=== PATIENT | male | born 1960 | race African-American/Black ===

== ENCOUNTER 2019-01-01 14:56 | Emergency (ER) | payer OTHER, MEDICARE ==
[2019-01-01] MEDS ORDERED: HYDROCODONE/ACETAMINOPHEN 5-325 MG TABLET PO ONE (16:12)
[2019-01-01] MEDS ORDERED: PREDNISONE 20 MG TABLET PO ONE (16:12)
--- NOTE | 2019-01-01 16:16 | ER Document Report ---
HPI - HPI Patient complains to provider of: Right foot pain Time Seen by Provider: 01/01/19 16:00 Onset/Duration: Persistent Quality of pain: Achy Pain Level: 3 Context: Patient presents with a 2-day history of right foot pain with tenderness and mild erythema. Patient does have a history of gout and suspects the same today. Associated Symptoms: Other. denies: Fever Exacerbated by: Standing, Movement, Walking Relieved by: Denies Similar symptoms previously: Yes Recently seen / treated by doctor: No - ROS ROS below otherwise negative: Yes Systems Reviewed and Negative: Yes All other systems reviewed and negative - CONSTITUTIONAL Constitutional: DENIES: Fever - NEURO Neurology: DENIES: Weakness - CARDIOVASCULAR Cardiovascular: DENIES: Chest pain - RESPIRATORY Respiratory: DENIES: Trouble Breathing, Coughing - GASTROINTESTINAL Gastrointestinal: DENIES: Nausea - MUSCULOSKELETAL Musculoskeletal: REPORTS: Extremity pain, Swelling - DERM Skin Color: Erythema Skin Problems: None Past Medical History - General Information source: Patient - Social History Smoking Status: Never Smoker Frequency of alcohol use: None Drug Abuse: None Lives with: Family Family History: Reviewed & Not Pertinent - Past Medical History Cardiac Medical History: Reports: Hx Hypertension, Other - Aortic dissection Endocrine Medical History: Reports: Hx Diabetes Mellitus Type 2 Renal/ Medical History: Reports: Hx Renal Insufficiency Past Surgical History: Reports: Hx Vascular Surgery - Aortic dissection Vertical Provider Document - CONSTITUTIONAL Agree With Documented VS: Yes Exam Limitations: No Limitations General Appearance: WD/WN, No Apparent Distress - INFECTION CONTROL TRAVEL OUTSIDE OF THE [place] IN LAST 30 DAYS: No - HEENT HEENT: Atraumatic, Normocephalic - NECK Neck: Normal Inspection - RESPIRATORY Respiratory: No Respiratory Distress - CARDIOVASCULAR Pulses: Normal: Dorsalis pedis - MUSCULOSKELETAL/EXTREMETIES Musculoskeletal/Extremeties: MAEW, FROM, No Edema - 1+ to right foot - NEURO Level of Consciousness: Awake, Alert, Appropriate Motor/Sensory: No Motor Deficit - DERM Integumentary: Warm, Dry Notes: Mild erythema over left foot first metatarsal and over lateral aspect of right midfoot area. Course - Re-evaluation Re-evalutation: 01/01/19 16:14 Patient has a history of gout and suspects the same today. Patient denies any trauma to the foot. Patient without any fever. Discussed gout diet with patient. - Vital Signs Vital signs: Temp Pulse Resp BP Pulse Ox 98.2 F 118 H 18 153/92 H 96 01/01/19 15:02 01/01/19 15:02 01/01/19 15:02 01/01/19 15:02 01/01/19 15:02 Discharge - Discharge Clinical Impression: Right foot pain Gout attack Qualifiers: Gout site: foot Gout etiology: unspecified cause Laterality: right Qualified Code(s): M10.9 - Gout, unspecified Condition: Stable Disposition: HOME, SELF-CARE Instructions: Use of Crutches ([facility]), Gout ([facility]), Gout Diet ([facility]), Oral Narcotic Medication ([facility]), Steroid Medication Additional Instructions: Return immediately for any new or worsening symptoms Followup with your primary care provider, call tomorrow to make a followup appointment Weightbearing as tolerated Eat foods that are low in purine Prescriptions: Hydrocodone/Acetaminophen [[place] 5-325 mg Tablet] 1 tab PO Q6 PRN #15 tablet PRN Reason: Prednisone [Deltasone 20 mg Tablet] 2 tab PO DAILY 5 Days tablet Referrals: [facility] [Provider Group] - Follow up as needed
[2019-01-01 16:29] VITALS: BP 164/99
== END 2019-01-01 16:32 | disposition home or self-care (01) ==
LOC: ER 14:56
DX: M79.671 Pain in right foot (principal); M10.9 Gout, unspecified; I10 Essential (primary) hypertension; E11.9 Type 2 diabetes mellitus without complications
CPT/HCPCS: 99283; J7512

== ENCOUNTER 2019-01-26 16:05 | Emergency (ER) | payer OTHER, MEDICARE ==
--- NOTE | 2019-01-26 17:23 | ER Document Report ---
ED Medical Screen (RME) - General Chief Complaint: Abnormal Lab Results Stated Complaint: ABNORMAL LABS Time Seen by Provider: 01/26/19 17:14 Primary Care Provider: BRITNEY DAVALOS [Primary Care Provider] - Follow up as needed Mode of Arrival: Ambulatory Information source: Patient Notes: 58-year-old male presented to ED for complaint of pain to the left ankle. He states he was diagnosed with gout and took to gout medications and as soon as it ran out his pain returned. He states he went to the [facility] recently and had labs drawn and they told him there was abnormal labs and that they will go to call the emergency room what labs drawn. I cannot find where he anyone has called the emergency room. I have ordered basic labs as well as uric acid and a urine. I have greeted and performed a rapid initial assessment of this patient. A comprehensive ED assessment and evaluation of the patient, analysis of test results and completion of medical decision making process will be conducted by an additional ED providers. Dictation of this chart was performed using voice recognition software; therefore, there may be some unintended grammatical errors. TRAVEL OUTSIDE OF THE [place] IN LAST 30 DAYS: No - Related Data Allergies/Adverse Reactions: No Known Allergies Allergy (Verified 01/26/19 16:35) Past Medical History - Past Medical History Cardiac Medical History: Reports: Hx Hypertension Endocrine Medical History: Reports: Hx Diabetes Mellitus Type 2 Renal/ Medical History: Reports: Hx Renal Insufficiency. Denies: Hx Peritoneal Dialysis Past Surgical History: Reports: Hx Vascular Surgery - Aortic dissection Doctor's Discharge - Discharge Referrals: ANOOP,BRITNEY [Primary Care Provider] - Follow up as needed
[2019-01-26 17:55] LABS: APPEARANCE,URINE CLEAR; BILIRUBIN,URINE NEGATIVE (NEGATIVE); COLOR,URINE YELLOW; GLUCOSE, URINE NEGATIVE (NEGATIVE); KETONES,URINE NEGATIVE (NEGATIVE); LEUKOCYTE ESTERASE,URINE NEGATIVE (NEGATIVE); NITRITE,URINE NEGATIVE (NEGATIVE); PROTEIN,URINE NEGATIVE (NEGATIVE); URINE SPECIFIC GRAVITY 1.015; UROBILINOGEN,URINE NEGATIVE mg/dL (<2.0)
[2019-01-26 18:00] LABS: ABSOLUTE EOSINOPHILS # (AUTO) 0.1 10^3/uL (0.0-0.6); ABSOLUTE LYMPHOCYTES (AUTO) 1.7 10^3/uL (0.5-4.7); ABSOLUTE MONOCYTES (AUTO) 0.5 10^3/uL (0.1-1.4); ABSOLUTE NEUT (AUTO) 9.4 10^3/uL (1.7-8.2); BASOPHILS % (AUTO) 0.3 % (0-2); EOSINOPHILS % (AUTO) 0.5 % (0-6); HEMATOCRIT 42.6 % (37.9-51.0); HEMOGLOBIN 14.1 g/dL (13.5-17.0); LYMPHOCYTES % (AUTO) 14.2 % (13-45); MEAN CORPUSCULAR HEMOGLOBIN 30.5 pg (27.0-33.4); MEAN CORPUSCULAR VOLUME 92 fl (80-97); MONOCYTES % (AUTO) 4.6 % (3-13); PLATELET COUNT 229 10^3/uL (150-450); RED BLOOD COUNT 4.61 10^6/uL (4.35-5.55); RED CELL DISTRIBUTION WIDTH 13.9 % (11.5-14.0); SEGMENTED NEUTROPHILS % (AUTO) 80.4 % (42-78); TOTAL CELLS COUNTED % (AUTO) 100 %; WHITE BLOOD COUNT 11.6 10^3/uL (4.0-10.5)
--- NOTE | 2019-01-26 18:00 | RADIOLOGY REPORT (SQ) ---
EXAM DESCRIPTION: ANKLE LEFT COMPLETE COMPLETED DATE/TIME: 01/26/2019 5:40 pm REASON FOR STUDY: pain to left ankle since gout med out COMPARISON: None. NUMBER OF VIEWS: Three views. TECHNIQUE: AP, lateral, and oblique radiographic images acquired of the left ankle. LIMITATIONS: None. FINDINGS: MINERALIZATION: Normal. BONES: No acute fracture or dislocation. No worrisome bone lesions. JOINTS: No effusions. SOFT TISSUES: No soft tissue swelling. No foreign body. OTHER: Prominent anterior talus spur is noted. IMPRESSION: Degenerative changes. No acute findings. TECHNICAL DOCUMENTATION: JOB ID: [id number] [email or web address]- All Rights Reserved Reading location - IP/workstation name: [email or web address]
[2019-01-26 18:18] LABS: ALANINE AMINOTRANSFERASE 16 U/L (21-72); ALBUMIN 4.8 g/dL (3.5-5.0); ALKALINE PHOSPHATASE 78 U/L (38-126); ANION GAP 17 (5-19); ASPARTATE AMINO TRANSFERASE 12 U/L (17-59); BILIRUBIN,DIRECT 0.3 mg/dL (0.0-0.4); BILIRUBIN,TOTAL 0.4 mg/dL (0.2-1.3); BLOOD UREA NITROGEN 29 mg/dL (7-20); CALCIUM 9.9 mg/dL (8.4-10.2); CARBON DIOXIDE 20 mmol/L (22-30); CHLORIDE 107 mmol/L (98-107); GLUCOSE 106 mg/dL (75-110); LIPASE 70.4 U/L (23-300); SODIUM 143.8 mmol/L (137-145); TOTAL PROTEIN 8.6 g/dL (6.3-8.2); URIC ACID 10.6 mg/dL (3.5-8.5)
[2019-01-26] MEDS ORDERED: PREDNISONE 20 MG TABLET PO ONE (19:42)
[2019-01-26] MEDS ORDERED: NORMAL SALINE 1000 ML 1,000 ML IV ONE (19:43)
[2019-01-26] MEDS ORDERED: FUROSEMIDE INJ/PF 20 MG/2 ML SDV IV ONE (19:43)
[2019-01-26] MEDS ORDERED: DEXTROSE 50%-WATER 25 GM/50 ML DISP.SYRIN IV ONE (19:45)
[2019-01-26] MEDS ORDERED: INSULIN REG, HUMAN 100 UNIT/ML 3 ML VIAL (PYX) IV ONE (19:45)
--- NOTE | 2019-01-26 19:52 | ER Document Report ---
ED General - General Chief Complaint: Abnormal Lab Results Stated Complaint: ABNORMAL LABS Time Seen by Provider: 01/26/19 17:14 Primary Care Provider: BRITNEY DAVALOS [NO LOCAL MD] - Follow up as needed Mode of Arrival: Ambulatory Notes: Patient is a 58-year-old male with past medical history of chronic kidney disease, essential hypertension, gout, presents complaining of left ankle pain as [facility]. The patient states that he was treated with a medication the name of which he cannot recall for gout as soon as he stopped taking medication his left ankle again became swollen. He describes a throbbing, aching, severe, constant pain to the left ankle. Walking on the ankle worsens the pain. Nothing improves the pain. Has a long-standing history of gout. Patient states that his kidney function is usually 2.6-2.7 on the creatinine but he has never been told that he has high potassium the past he does take lisinopril. He denies any chest pain, palpitations, or syncope. TRAVEL OUTSIDE OF THE [place] IN LAST 30 DAYS: No - Related Data Allergies/Adverse Reactions: No Known Allergies Allergy (Verified 01/26/19 16:35) Past Medical History - General Information source: Patient - Social History Smoking Status: Former Smoker Frequency of alcohol use: None Drug Abuse: None Lives with: Alone Family History: Reviewed & Not Pertinent Patient has suicidal ideation: No Patient has homicidal ideation: No - Past Medical History Cardiac Medical History: Reports: Hx Hypertension Endocrine Medical History: Reports: Hx Diabetes Mellitus Type 2 Renal/ Medical History: Reports: Hx Renal Insufficiency. Denies: Hx Marry toneal Dialysis Past Surgical History: Reports: Hx Vascular Surgery - Aortic dissection Review of Systems - Review of Systems Notes: Constitutional: Negative for fever. HENT: Negative for sore throat. Eyes: Negative for visual changes. Cardiovascular: Negative for chest pain. Respiratory: Negative for shortness of breath. Gastrointestinal: Negative for abdominal pain, vomiting or diarrhea. Genitourinary: Negative for dysuria. Musculoskeletal: Positive for left ankle pain Skin: Negative for rash. Neurological: Negative for headaches, weakness or numbness. 10 point ROS negative except as marked above and in HPI. Physical Exam - Vital signs Vitals: Resp Pulse Ox 15 100 01/26/19 20:01 01/26/19 20:01 Interpretation: Normal Notes: PHYSICAL EXAMINATION: GENERAL: Well-appearing, well-nourished and in no acute distress. HEAD: Atraumatic, normocephalic. EYES: Pupils equal round and reactive to light, extraocular movements intact, sclera anicteric, conjunctiva are normal. ENT: nares patent, oropharynx clear without exudates. Moist mucous membranes. NECK: Normal range of motion, supple without lymphadenopathy LUNGS: Breath sounds clear to auscultation bilaterally and equal. No wheezes rales or rhonchi. HEART: Regular rate and rhythm without murmurs ABDOMEN: Soft, nontender, normoactive bowel sounds. No guarding, no rebound. No masses appreciated. EXTREMITIES: Normal range of motion, mild swelling of the left ankle, dorsi and plantar flexion are maintained. NEUROLOGICAL: No focal neurological deficits. Moves all extremities spontaneously and on command. PSYCH: Normal mood, normal affect. SKIN: Warm, Dry, normal turgor, no rashes or lesions noted. Course - Re-evaluation Re-evalutation: 01/26/19 19:56 Patient presents with moderate hyperkalemia with potassium of 6 with chronic kidney dysfunction. I do not have old labs for comparison although patient does report that his creatinine is usually between 2.6 and 2.7. Currently at 2.54. The patient has findings of swelling to his left ankle consistent with gout as there is no erythema, warmth, or trauma to the area. Do not suspect septic joint. Patient able to maintain full range of motion. Patient will be started on steroids for treatment as indomethacin and colchicine are not options given his chronic kidney disease. Patient will be treated with furosemide, IV fluids, insulin and glucose for his hyperkalemia. His EKG is without any concerning findings in regards to his hyperkalemia. Will recheck potassium level after the patient has had treatment to ensure that it has come into an acceptable range prior to discharge. 01/26/19 19:56 01/26/19 22:41 Patient's potassium has improved to 5.2. Pain improved after receiving prednisone in the left ankle. Patient will be discharged home on a course of prednisone, has been instructed to hold his lisinopril and have a recheck of his potassium level within the next 3 to 5 days through his primary care physician. At this time will discharge with return precautions and follow-up recommendations. Verbal discharge instructions given a the bedside and opportunity for questions given. Medication warnings reviewed. Patient is in agreement with this plan and has verbalized understanding of return precautions and the need for primary care follow-up in the next 24-72 hours. - Vital Signs Vital signs: Temp Pulse Resp BP Pulse Ox 98.3 F 23 H 143/88 H 96 01/26/19 20:54 01/26/19 22:01 01/26/19 22:01 01/26/19 22:01 - Laboratory Result Diagrams: 01/26/19 17:33 01/26/19 21:30 Laboratory results interpreted by me: 01/26/19 01/26/19 01/26/19 17:33 17:33 21:30 WBC 11.6 H Seg Neutrophils % 80.4 H Absolute Neutrophils 9.4 H Potassium 6.0 H* 5.2 H Carbon Dioxide 20 L BUN 29 H 28 H Creatinine 2.54 H 2.48 H Est GFR ( Amer) 32 L 32 L Est GFR (Non-Af Amer) 26 L 27 L Glucose 195 H Uric Acid 10.6 H AST 12 L ALT 16 L Total Protein 8.6 H - EKG Interpretation by Me Additional EKG results interpreted by me: 01/26/19 19:57 Fifths rhythm, rate 71. No ST elevations or depressions. No peak T waves. QRS 86. Discharge - Discharge Clinical Impression: Hyperkalemia Chronic kidney disease Qualifiers: Chronic kidney disease stage: unspecified stage Qualified Code(s): N18.9 - Chronic kidney disease, unspecified Left ankle pain Qualifiers: Chronicity: acute Qualified Code(s): M25.572 - Pain in left ankle and joints of left foot Gout of left ankle Qualifiers: Gout etiology: due to renal impairment Chronicity: acute Qualified Code(s): M10.372 - Gout due to renal impairment, left ankle and foot Condition: Good Disposition: HOME, SELF-CARE Additional Instructions: Please have a recheck of your potassium within the next 3 to 5 days through your primary care physician. Your potassium did improve with treatment here in the emergency department and your labs are included with your discharge paperwork. Please hold the medication called lisinopril that you are taking as this can raise your potassium level. Please also be mindful of consuming foods that are high in potassium such as bananas, tomatoes, kiwi, sweet potato, avocado, dairy products, and fruit juices. You should return to the emergency department immediately if you develop lightheadedness, pass out, have palpitations, or have any other symptoms that are concerning to you. You have been started on steroids for treatment of gout of your left ankle. In regards to the ankle, please be sure to return to the emergency department if you have significant worsening of your pain, develop a fever greater than 100.4 F, become unable to walk on the ankle, or have any other symptoms that are concerning to you. [facility]errals[facility] [NO [facility]] - Follow up in 3-5 days
[2019-01-26 22:10] LABS: ANION GAP 12 (5-19); BLOOD UREA NITROGEN 28 mg/dL (7-20); CALCIUM 9.2 mg/dL (8.4-10.2); CARBON DIOXIDE 22 mmol/L (22-30); CHLORIDE 106 mmol/L (98-107); GLUCOSE 195 mg/dL (75-110); POTASSIUM 5.2 mmol/L (3.6-5.0); SODIUM 140.3 mmol/L (137-145)
[2019-01-26 23:01] VITALS: BP 138/83
--- NOTE | 2019-01-27 22:21 | EKG REPORT ---
SEVERITY:- BORDERLINE ECG - SINUS RHYTHM PROBABLE LEFT ATRIAL ABNORMALITY BORDERLINE LEFT AXIS DEVIATION BORDERLINE T ABNORMALITIES, INFERIOR LEADS : Confirmed by: Malaika Morel MD 27-Jan-2019 22:20:16
== END 2019-01-26 23:01 | disposition home or self-care (01) ==
LOC: ER 16:05
DX: E87.5 Hyperkalemia (principal); M10.372 Gout due to renal impairment, left ankle and foot; M25.472 Effusion, left ankle; E11.22 Type 2 diabetes mellitus with diabetic chronic kidney disease; I12.9 Hypertensive chronic kidney disease with stage 1 through stage 4 chronic kidney disease, or unspecified chronic kidney disease; N18.9 Chronic kidney disease, unspecified
CPT/HCPCS: 93005; 99284; 96361; 96374; 96375; 36415; 83690; 84550; 85025; 80048; 80053; 81001; 73610; 93010; J3490; J1940; J7512; J1815; J7030

== ENCOUNTER 2019-02-10 13:51 | Emergency (ER) | payer OTHER, MEDICARE ==
--- NOTE | 2019-02-10 15:04 | ER Document Report ---
HPI - HPI Patient complains to provider of: Left knee and foot pain history of gout Time Seen by Provider: 02/10/19 14:38 Onset: Yesterday Onset/Duration: Persistent Quality of pain: Achy, Throbbing Severity: Severe Pain Level: 4 Context: Patient presents emergency department with complaints of left knee and foot pain that started yesterday. Patient reports he has had gout for 20 years and this is a gout flare. He reports he is under the care of the [facility] and they have recently obtained labs from him trying to find out why he has gout. He reports they told him his potassium was high and gave him some medication for potassium. He denies trauma. Denies fever vomiting diarrhea. Reports it usually goes away after 3 to 4 days but he walks his dog and really hurts to walk. Associated Symptoms: None Exacerbated by: Walking Relieved by: Denies Similar symptoms previously: Yes Recently seen / treated by doctor: Yes Past Medical History - General Information source: Patient - Social History Smoking Status: Former Smoker Cigarette use (# per day): No Frequency of alcohol use: None Drug Abuse: None Lives with: Family Family History: Reviewed & Not Pertinent Patient has suicidal ideation: No Patient has homicidal ideation: No - Past Medical History Cardiac Medical History: Reports: Hx Hypertension Endocrine Medical History: Reports: Hx Diabetes Mellitus Type 2 Renal/ Medical History: Reports: Hx Renal Insufficiency. Denies: Hx Marry toneal Dialysis Musculoskeletal Medical History: Reports Hx Gout Past Surgical History: Reports: Hx Vascular Surgery - Aortic dissection Vertical Provider Document - CONSTITUTIONAL Agree With Documented VS: Yes Exam Limitations: No Limitations General Appearance: WD/WN, No Apparent Distress - Winces when left knee and foot are palpated - INFECTION CONTROL TRAVEL OUTSIDE OF THE [place] 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 Patient was encouraged [facility] to come [facility] with some kind of plan to treat his gout. He was instructed that it is very important that he be cared for by one primary care provider for his gout. I also instructed him that should he come again he may not receive narcotics. We discussed steroids and diabetes. It is important for him to check his glucose. He verbalized understanding to all instructions his daughter is at his side and she reports she will check his sugar. Dictation of this chart was performed using voice recognition software; therefore, there may be some unintended grammatical errors. - Vital Signs Vital signs: Temp Pulse Resp BP Pulse Ox 98.3 F 81 12 146/85 H 98 02/10/19 13:55 02/10/19 13:55 02/10/19 13:55 02/10/19 13:55 02/10/19 13:55 Discharge - Discharge Clinical Impression: left foot and knee pain, History of gout Condition: Stable Disposition: HOME, SELF-CARE Instructions: Gout ([facility]), Gout Diet ([facility]), Oral Narcotic Medication ([facility]), Steroid Medication Additional Instructions: *You have been evaluated for left foot and knee pain history of gout *Monitor your diet *[facility] for [facility] *Take medication as prescribed *Return to ED for worsening condition, changes, needs Prescriptions: Hydrocodone/Acetaminophen [[place] 5-325 mg Tablet] 1 tab PO QID #15 tablet Prednisone [Deltasone 10 mg Tablet] 10 mg PO ASDIR PRN #21 tablet PRN Reason: [facility]errals: [facility] [[facility]] - Follow up in 3-5 days
[2019-02-10 15:37] VITALS: BP 133/81
== END 2019-02-10 15:34 | disposition home or self-care (01) ==
LOC: ER 13:51
DX: M25.562 Pain in left knee (principal); M79.672 Pain in left foot; M10.9 Gout, unspecified; Z87.891 Personal history of nicotine dependence; I10 Essential (primary) hypertension; E11.9 Type 2 diabetes mellitus without complications
CPT/HCPCS: 99283

== ENCOUNTER → 2019-11-01 | Outpatient (CLI) | payer OTHER ==
--- NOTE | 2019-11-01 15:57 | RADIOLOGY REPORT (SQ) ---
EXAM DESCRIPTION: U/S RETROPERITON (RENAL/AORTA) COMPLETED DATE/TIME: 11/01/2019 2:57 pm REASON FOR STUDY: N18.3 CHRONIC KIDNEY DISEASE, STAGE 3 (MODERATE) N18.3 CHRONIC KIDNEY DISEASE, ST AGE 2 (MODERATE) COMPARISON: None. TECHNIQUE: Dynamic and static grayscale images acquired of the kidneys and bladder and recorded on P ACS. Additional selected color Doppler and spectral images recorded. LIMITATIONS: None. FINDINGS: RIGHT KIDNEY: Normal size, 11.1 cm. Normal echogenicity. No solid or suspicious masses. Multiple cysts. The largest measures 5.2 cm. No hydronephrosis. No calcifications. LEFT KIDNEY: Normal size, 12.7 cm. Normal echogenicity. No solid or suspicious masses. Multiple c ysts. The largest measures 4.6 cm. No hydronephrosis. No calcifications. BLADDER: No masses. Ureteral jets are not seen. OTHER FINDINGS: No other significant finding. IMPRESSION: There are multiple cysts on each kidney. No other significant findings. TECHNICAL DOCUMENTATION: JOB ID: [id number] [employer]- All Rights Reserved Reading location - IP/workstation name: [email or web address]
== END ==
LOC: RAD 13:49
PROVIDERS: ATTEND Internal Medicine Nephrology
DX: I12.9 Hypertensive chronic kidney disease with stage 1 through stage 4 chronic kidney disease, or unspecified chronic kidney disease (principal); N18.3 Chronic kidney disease, stage 3 (moderate); Q61.02 Congenital multiple renal cysts
CPT/HCPCS: 76770

== ENCOUNTER → 2020-08-14 | Outpatient (CLI) | payer OTHER ==
[2020-08-14 16:27] LABS: ABSOLUTE EOSINOPHILS # (AUTO) 0.4 10^3/uL (0.0-0.6); ABSOLUTE LYMPHOCYTES (AUTO) 3.1 10^3/uL (0.5-4.7); ABSOLUTE MONOCYTES (AUTO) 0.9 10^3/uL (0.1-1.4); ABSOLUTE NEUT (AUTO) 5.9 10^3/uL (1.7-8.2); BASOPHILS % (AUTO) 0.4 % (0-2); EOSINOPHILS % (AUTO) 3.4 % (0-6); HEMATOCRIT 40.6 % (37.9-51.0); HEMOGLOBIN 13.6 g/dL (13.5-17.0); LYMPHOCYTES % (AUTO) 29.8 % (13-45); MEAN CORPUSCULAR HEMOGLOBIN 30.8 pg (27.0-33.4); MEAN CORPUSCULAR HGB CONC 33.4 g/dL (32.0-36.0); MEAN CORPUSCULAR VOLUME 92 fl (80-97); MONOCYTES % (AUTO) 8.9 % (3-13); PLATELET COUNT 230 10^3/uL (150-450); RED BLOOD COUNT 4.41 10^6/uL (4.35-5.55); RED CELL DISTRIBUTION WIDTH 13.5 % (11.5-14.0); SEGMENTED NEUTROPHILS % (AUTO) 57.5 % (42-78); TOTAL CELLS COUNTED % (AUTO) 100 %; WHITE BLOOD COUNT 10.3 10^3/uL (4.0-10.5)
[2020-08-14 16:41] LABS: APPEARANCE,URINE SLIGHTLY-CLOUDY; BILIRUBIN,URINE NEGATIVE (NEGATIVE); COLOR,URINE YELLOW; GLUCOSE, URINE NEGATIVE (NEGATIVE); KETONES,URINE NEGATIVE (NEGATIVE); LEUKOCYTE ESTERASE,URINE NEGATIVE (NEGATIVE); NITRITE,URINE NEGATIVE (NEGATIVE); PROTEIN,URINE >=500 mg/dL (NEGATIVE); URINE SPECIFIC GRAVITY 1.013; UROBILINOGEN,URINE NEGATIVE mg/dL (<2.0)
[2020-08-14 16:58] LABS: ALBUMIN 4.5 g/dL (3.5-5.0); ANION GAP 10 (5-19); BLOOD UREA NITROGEN 33 mg/dL (7-20); CALCIUM 9.8 mg/dL (8.4-10.2); CARBON DIOXIDE 21 mmol/L (22-30); CHLORIDE 109 mmol/L (98-107); GLUCOSE 109 mg/dL (75-110); PHOSPHORUS 4.2 mg/dL (2.5-4.5); POTASSIUM 5.7 mmol/L (3.6-5.0); URIC ACID 7.7 mg/dL (3.5-8.5)
== END ==
LOC: OD 15:43
PROVIDERS: ATTEND Internal Medicine Nephrology
DX: N18.32 Chronic kidney disease, stage 3b (principal); R80.9 Proteinuria, unspecified; E21.1 Secondary hyperparathyroidism, not elsewhere classified; E55.9 Vitamin D deficiency, unspecified; M10.00 Idiopathic gout, unspecified site
CPT/HCPCS: 36415; 80069; 81001; 82043; 82306; 82570; 83970; 84550; 85025